=== PATIENT | male | born 1995 | race American Indian/Alaskan Native ===

== ENCOUNTER 2016-03-08 17:15 | Emergency (ER) | payer BC ==
--- NOTE | 2016-03-08 20:11 | Ultrasound Report ---
FINAL REPORT EXAM: US TESTICULAR DOPPLER COMP HISTORY: testicular swelling and left testicular pain TECHNIQUE: Ultrasound of scrotum PRIORS: None. FINDINGS: Examination of the testicles demonstrates both to be normal in size and normal and homogeneous in echogenicity with normal blood flow bilaterally. No focal abnormality is noted in either testicle. The right testicle measures 4.3 x 2.4 x 2.8 cm and the left measures 3.7 x 2.3 x 3.0 cm. On the left, there is a moderate-sized hydrocele. The body and tail of the left epididymis is mildly enlarged. The left epididymis also has increased blood flow suggesting acute epididymitis. There is also mild skin thickening of the left hemiscrotum, likely inflammatory. The right epididymis appears normal in size and echogenicity with normal blood flow. No focal abnormality is noted on the right. No evidence for varicoceles are present bilaterally. IMPRESSION: 1. Increased blood flow and mild enlargement of the body and tail of the left epididymis. Findings are suspicious for acute epididymitis. 2. Moderate left hydrocele 3. Mild skin thickening of the low left hemiscrotum. 4. Normal appearance to both testicles.
[2016-03-08] MEDS ORDERED: MOTRIN PO ONE (21:53)
[2016-03-08] MEDS ORDERED: XYLOCAINE 1% MPF 5 mL INFILTRATI ONE (21:53)
[2016-03-08] MEDS ORDERED: VIBRAMYCIN PO ONE (21:53)
[2016-03-08] MEDS ORDERED: ROCEPHIN IM ONE (21:53)
[2016-03-08 21:57] VITALS: BP 129/69
--- NOTE | 2016-03-08 21:59 | Emergency Department Report ---
ED Male HPI - General Chief complaint: Urogenital-Male Stated complaint: HERNIA PAIN Time Seen by Provider: 03/08/16 21:46 Source: patient, RN notes reviewed Mode of arrival: Ambulatory Limitations: No Limitations - History of Present Illness Initial comments: This is a 20-year-old male. He is previously unknown to me. Denies chronic medical conditions. He does not have a primary care doctor, but reports that he is seeing a primary care doctor for follow-up this Tuesday. The patient presents to the ER with left inguinal pain, left testicular pain. Pain is sharp. Waxes and wanes. It does not radiate. Positive intermittent dysuria. No nausea, vomiting or diarrhea. Denies fevers, chills, chest pain, shortness of breath. The patient reports 2 sexual partners within the past 12 months. Denies condom use. Patient reports vaginal and anal intercourse. MD Complaint: testicle pain, dysuria -: Gradual, days(s) Location: left testicle, left inguinal region Severity: moderate Quality: aching Consistency: intermittent Improves with: rest Worsens with: movement discharge, dysuria. denies: swelling, mass, rash - Related Data Sexually active: Yes Previous Rx's Medication Instructions Recorded Last Taken Type Doxycycline [Vibramycin] 100 mg PO Q12HR #20 capsule 03/08/16 Unknown Rx Ketorolac [Toradol] 10 mg PO Q6H PRN #20 tablet 03/08/16 Unknown Rx oxyCODONE [Roxicodone] 5 mg PO Q6HR PRN #15 tablet 03/08/16 Unknown Rx Allergies Allergy/AdvReac Type Severity Reaction Status Date / Time No Known Allergies Allergy Unverified 03/08/16 17:29 ED Review of Systems ROS: Stated complaint: HERNIA PAIN Other details as noted in HPI Constitutional: denies: fever Eyes: denies: vision change ENT: denies: epistaxis Respiratory: denies: cough Cardiovascular: denies: chest pain Gastrointestinal: denies: abdominal pain Genitourinary: as per HPI, dysuria, testicular pain Musculoskeletal: denies: back pain Skin: denies: rash, lesions Neurological: denies: weakness Psychiatric: denies: anxiety, depression ED Past Medical Hx - Past Medical History Previous Medical History?: No - Surgical History Past Surgical History?: No - Social History Smoking Status: Current Every Day Smoker Substance Use Type: Alcohol - Medications Home Medications: Home Medications Medication Instructions Recorded Confirmed Last Taken Type Doxycycline [Vibramycin] 100 mg PO Q12HR #20 capsule 03/08/16 Unknown Rx Ketorolac [Toradol] 10 mg PO Q6H PRN #20 tablet 03/08/16 Unknown Rx oxyCODONE [Roxicodone] 5 mg PO Q6HR PRN #15 tablet 03/08/16 Unknown Rx ED Physical Exam - General Limitations: No Limitations General appearance: alert, in no apparent distress - Head Head exam: Present: atraumatic, normocephalic - Eye Eye exam: Present: normal appearance, EOMI. Absent: nystagmus - ENT ENT exam: Present: normal exam, normal orophraynx, mucous membranes moist, normal external ear exam - Neck Neck exam: Present: normal inspection, full ROM. Absent: tenderness, meningismus - Respiratory Respiratory exam: Present: normal lung sounds bilaterally. Absent: respiratory distress, wheezes, rales, rhonchi, stridor, chest wall tenderness - Cardiovascular Cardiovascular Exam: Present: regular rate, normal rhythm, normal heart sounds. Absent: bradycardia, tachycardia, irregular rhythm, systolic murmur, diastolic murmur, rubs, gallop - GI/Abdominal GI/Abdominal exam: Present: soft, normal bowel sounds. Absent: distended, tenderness, guarding, rebound, rigid - Rectal Rectal exam: Present: deferred - exam: Present: normal inspection, testicular tenderness, other (there is left -sided with inguinal adenopathy. There is left-sided testicular tenderness. the cremasteric reflexes are intact bilaterally. There is normal testicular lie bilaterally.) External exam: Present: normal external exam, other (escorted by Yoshi Forrester) - Extremities Exam Extremities exam: Present: normal inspection, full ROM, normal capillary refill. Absent: tenderness, pedal edema, joint swelling, calf tenderness - Back Exam Back exam: Present: normal inspection, full ROM. Absent: tenderness, CVA tenderness (R), CVA tenderness (L), muscle spasm, paraspinal tenderness, vertebral tenderness - Neurological Exam Neurological exam: Present: alert, oriented X3, normal gait, other (Extraocular movements intact. Tongue midline. No facial droop. Facial sensation intact to light touch in the V1, V2, V3 distribution bilaterally. 5 and 5 strength in 4 extremities.. Sensation is intact to light touch in 4 extremities.). Absent : motor sensory deficit - Psychiatric Psychiatric exam: Present: normal affect, normal mood - Skin Skin exam: Present: warm, dry, intact, normal color. Absent: rash ED Course Vital Signs 03/08/16 03/08/16 17:29 21:56 Temperature 100.0 F H Pulse Rate 90 78 Respiratory 18 16 Rate Blood Pressure 120/67 Blood Pressure 129/69 [Right] O2 Sat by Pulse 99 99 Oximetry - Reevaluation(s) Reevaluation #1: 03/08/16 21:57 Differential diagnosis: Testicular torsion, urethritis, orchitis, epididymitis Assessment and plan: 20-year-old male with left-sided testicular pain, ultrasound that suggests epididymitis. Patient given his young age is at high risk for gonorrhea/chlamydia. Urinalysis, cultures are sent and pending. The patient will be treated empirically with ceftriaxone and doxycycline. He has follow-up this Tuesday with a primary care doctor by his history and by what he tells me. He will be discharged with doxycycline, pain medication, and instructions to follow up with the primary care doctor. Return precautions are extensively reviewed. ED Medical Decision Making - Lab Data Vital Signs 03/08/16 03/08/16 17:29 21:56 Temperature 100.0 F H Pulse Rate 90 78 Respiratory 18 16 Rate Blood Pressure 120/67 Blood Pressure 129/69 [Right] O2 Sat by Pulse 99 99 Oximetry - Radiology Data Radiology results: report reviewed, image reviewed Testicular ultrasound demonstrates increased blood flow and enlargement of the body Intel of the epididymis, suggestive of acute epididymitis. There is a left -sided hydrocele. There is mild skin thickening of the low left hemiscrotum. Right epididymis is within normal limits, no focal abnormality is noted on the right. No evidence for varicoceles. Critical care attestation.: If time is entered above; I have spent that time in minutes in the direct care of this critically ill patient, excluding procedure time. ED Disposition Clinical Impression: Testicular pain, left Disposition: DISCHARGED TO HOME OR SELFCARE Is pt being admited?: No Does the pt Need Aspirin: No Condition: Stable Instructions: Epididymitis (ED), Epididymo-orchitis (ED), Testicle Pain (ED) Additional Instructions: Testicular ultrasound suggested infection in the left-sided epididymis. This is suggestive of most likely Chlamydia/gonorrhea. These are typically considered sexually transmitted diseases. Dictated antibiotic therapy as directed. Antibiotic therapy can cause rash, so did not go out to the sunlight. It may also cause a stomachache, so make certain to take it on a full stomach. The oxycodone medication can be sedating , so do not make important decisions, drive, or operate motor vehicles if taking this medication. I recommend that he follow up with a primary care doctor within the next 3-5 days. Cultures was sent today, urinalysis was sent today, please have a physician follow these results up with him and recommended timeframe. I recommended outpatient testing for STDs including hepatitis, syphilis, HIV. I recommend that any partner U than sexually active with B tested/treated/evaluated for the same. I would not recommend resuming sexual activity until symptoms have stopped, and a physician instruction that it is safe/appropriate to resume sexual activity. Dr. Aranda is a local primary care doctor. Dr. Mcdonald is a local urology specialist. Return to the ER right away with new pain, worsened pain, migration of pain, fevers or chills, nausea or vomiting, inability to tolerate liquid feeds. Prescriptions: oxyCODONE [Roxicodone] 5 mg PO Q6HR PRN #15 tablet PRN Reason: Pain Ketorolac [Toradol] 10 mg PO Q6H PRN #20 tablet PRN Reason: Pain Doxycycline [Vibramycin] 100 mg PO Q12HR #20 capsule Referrals: PRIMARY CAREMD [Primary Care Provider] - 3-5 Days VINNY QUIÑONEZ MD [Staff Physician] - 3-5 Days ELEAZAR MCDONALD MD [Staff Physician] - 3-5 Days Forms: Work/School Release Form(ED)
[2016-03-08 22:12] LABS: Bilirubin,Urine NEG (Negative); Blood,Urine LG (Negative); Ketones,Urine 20 mg/dL (Negative); Leukocyte Esterase,Urine LG (Negative); Mucus,Urine 1+ /HPF; Nitrite,Urine NEG (Negative)
[2016-03-08 22:13] LABS: WBC,Urine > 182.0 /HPF (0.0-6.0)
== END 2016-03-08 22:31 | disposition home or self-care (01) ==
LOC: ED 17:15
DX: N50.812 Left testicular pain (principal); F17.200 Nicotine dependence, unspecified, uncomplicated
CPT/HCPCS: 81001; 87086; 87591; 93975; 96372; 99284; J0696